=== PATIENT | male | born 1940 | race Caucasian/White ===

== ENCOUNTER 2016-10-02 11:11 | Emergency (ER) | payer MEDICARE ==
[~2016-10-02 11:11] MED LIST: AMLO5TAB2 PO; ASCO500T PO; ASPI-482 PO; CALC500T50 PO; GLUC100018 PO; LOSA1TAB18 PO; OMEG500C PO; SIMV20TA3 PO; [UNRECOGNIZED DRUG - CODE] PO
[2016-10-02] MEDS ORDERED: IV NORMAL SALINE 1000ML BAG 1,000 ML IV SCH (11:20)
[2016-10-02] MEDS ORDERED: FENTANYL PF 100 MCG/2 ML VIAL. ONE (11:22)
[2016-10-02] MEDS ORDERED: IV RINGERS,LACTATED 1000ML 1,000 ML IV ONE ×2 (11:30→13:15)
[2016-10-02 11:34] LABS: BASO # 0.1 x10^3/uL (0.0-0.2); BASO % 1 % (0-3); EOS % 2 % (0-3); HEMATOCRIT 44.7 % (39.0-53.0); HEMOGLOBIN 15.1 g/dL (13.0-17.5); LYMPH # 4.4 x10^3/uL (1.0-4.8); LYMPH % 46 % (24-48); MEAN CORPUSCULAR HEMOGLOBIN 33 pg (25-35); MEAN CORPUSCULAR HGB CONC 34 g/dL (31-37); MEAN CORPUSCULAR VOLUME 97 fL (79-100); MONO % 10 % (0-9); NEUT % 41 % (31-73); PLATELET COUNT 225 x10^3/uL (140-400); RED BLOOD COUNT 4.59 x10^6/uL (4.30-5.70); RED CELL DISTRIBUTION WIDTH 13.2 % (11.5-14.5); WHITE BLOOD COUNT 9.7 x10^3/uL (4.0-11.0)
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
[2016-10-02 11:44] LABS: CALCIUM 9.2 mg/dL (8.5-10.1); CREATININE 1.1 mg/dL (0.7-1.3); GFR 65.1; POTASSIUM 3.4 mmol/L (3.5-5.1)
[2016-10-02] MEDS: FENTANYL PF 100 MCG/2 ML VIAL. IV PRN ×2 (11:51→12:05)
[2016-10-02] MEDS ORDERED: POTASSIUM CHLORIDE 20 MEQ TABLET.ER. PO ONE ×2 (12:00)
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
== END 2016-10-02 12:05 | disposition short-term general hospital (02) ==
LOC: ER 11:11
DX: T22.20XA Burn of second degree of shoulder and upper limb, except wrist and hand, unspecified site, initial encounter (principal); T21.21XA Burn of second degree of chest wall, initial encounter; E78.00 Pure hypercholesterolemia, unspecified; I10 Essential (primary) hypertension; Z88.0 Allergy status to penicillin; Z88.8 Allergy status to other drugs, medicaments and biological substances; X08.8XXA Exposure to other specified smoke, fire and flames, initial encounter; Y93.89 Activity, other specified; Y92.89 Other specified places as the place of occurrence of the external cause; Y99.8 Other external cause status
CPT/HCPCS: 36415; 71010; 80048; 85027; 96361; 96374; 99285; J3010; J7120

== ENCOUNTER → 2018-06-21 | Outpatient (CLI) | payer BC ==
[~2018-06-21] MED LIST changes: -AMLO5TAB2 PO; +AMLO5TAB7 PO; -CALC500T50 PO; +CALC500T54 PO; +FERR325T14 PO; +HYDR12.58 PO; +LOSA100T7 PO; -LOSA1TAB18 PO; +LOSA1TAB25 PO; +PSYL0.528 PO
--- NOTE | 2018-06-21 14:56 | RAD ---
CT CHEST WO CONTRAST Indication: Abnormal chest x-ray Technique: Noncontrast CT imaging was performed of the chest, multiplanar reconstruction images submitted. One or more of the following individualized dose reduction techniques were utilized for this examination: 1. Automated exposure control 2. Adjustment of the mA and/or kV according to patient size 3. Use of iterative reconstruction technique. Comparison: Chest radiograph on June 10, 2018, no previous chest CT available Findings: There is no suspicious pulmonary nodularity, no mass at the right lung base. There are some scattered small calcified pulmonary nodules bilaterally, also some calcified nodes of the mediastinum and bilateral hilar regions. There is coronary calcification. Tubular ascending thoracic aorta is dilated up to about 4.7 cm. Aortic root is estimated about 4.5 cm. There is no pleural or pericardial effusion or pneumothorax. There are small mediastinal nodes, not considered significantly enlarged, largest individual node about 0.6 cm short axis dimension. There is no abnormality of the thyroid gland. There is multilevel thoracic spondylosis. There is mild centrilobular emphysema. IMPRESSION: 1. There is no CT correlate for the radiographic findings. There is emphysema. There are findings of old granulomatous disease. 2. There is aneurysmal dilatation of the tubular ascending thoracic aorta up to 4.7 cm, aortic root dilatation about 4.5 cm. 3. There is coronary calcification. Electronically signed by: Carlos Cagle MD (06/21/2018 2:53 PM) [facility]
== END | disposition home or self-care (01) ==
LOC: CT 13:07
DX: J43.2 Centrilobular emphysema (principal); D71 Functional disorders of polymorphonuclear neutrophils; I25.10 Atherosclerotic heart disease of native coronary artery without angina pectoris; I71.2 Thoracic aortic aneurysm, without rupture; M47.894 Other spondylosis, thoracic region
CPT/HCPCS: 71250

== ENCOUNTER → 2018-06-26 | Outpatient (CLI) | payer BC ==
[~2018-06-26] MED LIST changes: +ASPI325T11 PO; +OXYC-323 PO; +REGADENOSON 0.4 MG/5 ML DISP.SYRIN. IV ONE
--- NOTE | 2018-06-26 10:58 | CARD ---
MR#: [id number] Date of Study: 06/26/2018 Ordering Physician: REYNA JUAREZ, Referring Physician: REYNA JUAREZ Tech: Karen Al RDCS APPROVED REPORT EXAM: Two-dimensional and M-mode echocardiogram with Doppler and color Doppler. Other Information Quality : Good INDICATION Hypertension/HCVD Pre-Op 2D DIMENSIONS RVDd2.7 (2.9-3.5cm)Left Atrium(2D)3.0 (1.6-4.0cm) IVSd1.2 (0.7-1.1cm)Aortic Root(2D)3.5 (2.0-3.7cm) LVDd4.6 (3.9-5.9cm)LVOT Diameter2.1 (1.8-2.4cm) PWd1.0 (0.7-1.1cm)LVDs2.9 (2.5-4.0cm) FS (%) 30.0 %SV64.1 ml LVEF(%)60.0 (>50%) Aortic Valve AoV Peak Jaden.121.4cm/sAoV VTI23.0cm AO Peak GR.5.9mmHgLVOT Peak Jaden.128.0cm/s AO Mean GR.3mmHgAVA (VMAX)3.75cm2 JUANITO (VTI)3.86ll1SQ P 1/2 Vbam686gv Mitral Valve MV E Lxhkksif59.2cm/sMV DECEL IEJE810yh MV A Szxjwnfz92.3cm/sE/A Ratio0.6 Tricuspid Valve TR P. Yllexwot517sg/sRAP IHBHVKOV4urNf TR Peak Gr.92uyGaPEIT56cyOb Pulmonary Vein S1 Cqvbnadr52.1cm/sD2 Ktiphubf02.9cm/s LEFT VENTRICLE The left ventricle is normal size. There is mild asymmetric septal hypertrophy. The left ventricular systolic function is normal. The Ejection Fraction is 55-60%. There is normal LV segmental wall motio n. Transmitral Doppler flow pattern is Grade I-abnormal relaxation pattern. RIGHT VENTRICLE The right ventricle is normal size. The right ventricular systolic function is normal. ATRIA The left atrium size is normal. The right atrium size is normal. The interatrial septum is intact wit h no evidence for an atrial septal defect or patent foramen ovale as noted on 2-D or Doppler imaging. AORTIC VALVE The aortic valve is calcified but opens well. Doppler and Color Flow revealed mild aortic regurgitati on. There is no significant aortic valvular stenosis. MITRAL VALVE The mitral valve is calcified but opens well. Mitral annular calcification is mild. There is no evide nce of mitral valve prolapse. There is no mitral valve stenosis. Doppler and Color-flow revealed mild mitral regurgitation. TRICUSPID VALVE The tricuspid valve is normal in structure and function. Doppler and Color Flow revealed mild tricusp id regurgitation. The PA pressure was estimated at 28 mmHg. There is no tricuspid valve stenosis. PULMONIC VALVE The pulmonary valve is normal in structure and function. Doppler and Color Flow revealed mild pulmoni c valvular regurgitation. There is no pulmonic valvular stenosis. GREAT VESSELS The aortic root is normal in size. The ascending aorta is moderately dilated at 4.4 cm. The IVC is no rmal in size and collapses >50% with inspiration. PERICARDIAL EFFUSION There is no evidence of significant pericardial effusion. Critical Notification Critical Value: No <Conclusion> The left ventricular systolic function is normal. The Ejection Fraction is 55-60%. There is normal LV segmental wall motion. Transmitral Doppler flow pattern is Grade I-abnormal relaxation pattern. Mild aortic regurgitation. Mild mitral regurgitation. Mild tricuspid regurgitation. The PA pressure was estimated at 28 mmHg. The ascending aorta is moderately dilated at 4.4 cm. There is no evidence of significant pericardial effusion. Signed by : Ryena Juarez, Electronically Approved : 06/26/2018 10:58:25
--- NOTE | 2018-06-26 11:29 | RAD ---
MR#: [id number] Date of Study: 06/26/2018 Ordering Physician: REYNA JUAREZ, Referring Physician: ANSON GEE Tech: LANETTE Laguna, ARRJennyfer (R) (N) APPROVED REPORT Test Type: Pharmacological Stress Nurse/Tech: Unruly Ray RN Test Indications: pre-op clearance Cardiac History: HTN, High cholesterol Medications: See Electronic Medical Record Medical History: See Electronic Medical Record Resting ECG: SR BBB Resting Heart Rate: 65 bpm Resting Blood Pressure: 146/82mmHg Pretest Chest Pain: No chest pain Nurse/Tech Notes Lungs CTA, S1S2 Consent: The procedure was explained to the patient in lay terms. Informed consent was witnessed. Niko eout was entered into [employer]. History and Stress Test performed by unruly Ray RN Pharm. Details Pharmacologic stress testing was performed using 0.4mg per 5ml of regadenoson given intravenously ove r 7-10 seconds. Stress Symptoms No chest pain or symptoms. POST EXERCISE Reason for Termination: Infusion complete Max HR: 94 bpm Max Blood Pressure: 135/68mmHg Blood Pressure response to exercise: Normal blood pressure response during stress. Heart Rate response to exercise: normal response Chest Pain: No. Arrhythmia: No. ST Change: No. INTERPRETATION Stress EKG Conclusion: Baseline EKG showed sinus rhythm with RBBB. No ischemic changes at peak stres s. No arrhythmias. Imaging Protocol IMAGE PROTOCOL: Rest Tc-99m/stress Tc-99m 1 day Rest: Stress: Viability: Radiopharm.Tc99m QsturaiplRy27a Sestamibi Bzxm14mXx 31mCi Img Date 06/26/2018 06/26/2018 Inj-Img Hyhc58eaj. 60min. Rest Admin Site:IV - Left AntecubitalAdministrator:LANETTE Laguna, ARRJennyfer (R)(N) Stress Admin Site: IV - Left AntecubitalAdministrator: FAUSTINO Guevara STRESS DATA End Diast. Vol.111.0mlAv. Heart Rate72.0bpm End Syst. Vol.32.0mlCO Index BSA5.7L/min Myocardial Twjq492.0gEject. Utqcezsj67.0% Stress Rates Pk. Fill Rate2.43EDV/secLVtime Pk. Fill 238.11msec Pk. Empty Rate3.52ESV/secLVtime Pk. Spdbn112.44msec 1/3 Pk. Fill0.20EDV/sec Stress Scores Regional WT1.00Summed WT5.00 Regional WM0.00Summed WM1.00 Study quality was good. Left Ventricular size was Normal at Rest and Stress. Lung uptake was . Left Ventricular ejection fraction is 67%. The rest and stress images show normal perfusion, normal contraction and thickening. LV Perf. Quant 17 Seg. SSS0.00 17 Seg. SRS0.00 17 Seg. SDS0.00 Stress Defect Extent (% LAD)0.00Rest Defect Extent (% LAD)0.00Rev. Defect Extent (% LAD)0.00 Stress Defect Extent (% LCX) 15.00Rest Defect Extent (% LCX)0.00Rev. Defect Extent (% LCX)15.00 Stress Defect Extent (% RCA)0.00Rest Defect Extent (% RCA)0.00Rev. Defect Extent (% RCA)0.00 Stress Defect Extent (% ИРИНА)2.60Rest Defect Extent (% ИРИНА)0.00Rev. Defect Extent (% ИРИНА)2.60 Conclusion 1. Regadenoson cardioisotope stress test did not show any evidence of ischemia or infarct. 2. Normal left ventricular systolic function with ejection fraction calculated at 67%. 3. Low risk for cardiac events. Signed by : Reyna Juarez, Electronically Approved : 06/26/2018 11:29:20
== END | disposition home or self-care (01) ==
LOC: NM 07:46
PROVIDERS: ATTEND Internal Medicine Cardiovascular Disease
DX: Z01.810 Encounter for preprocedural cardiovascular examination (principal); I10 Essential (primary) hypertension; E78.00 Pure hypercholesterolemia, unspecified; I08.3 Combined rheumatic disorders of mitral, aortic and tricuspid valves; Z86.73 Personal history of transient ischemic attack (TIA), and cerebral infarction without residual deficits
CPT/HCPCS: 78452; 93017; 93306; 96374; 96375; 96376; A9500; J2785

== ENCOUNTER 2018-07-02 09:04 | Inpatient (IN) | payer BC ==
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
[~2018-07-02] VITALS: Ht 177.8 cm; Wt 81.6 kg
[2018-07-02] VITALS (7 sets, daily range): BP systolic 117–128; BP diastolic 68–77
[~2018-07-02 09:04] MED LIST changes: +ACETAMINOPHEN 500 MG TABLET PO PRN; -ASPI325T11 PO; +CELECOXIB 100 MG CAPSULE. PO PRN; +CLINDAMYCIN 900MG PREMIX 50 ML IV PRN; +HYDROmorphone 2 MG/ML VIAL IV PRN; +LIDOCAINE 1% PF 2 ML VIAL. ID PRN; +MORPHINE SULFATE 2 MG/ML VIAL. IV PRN; +MORPHINE SULFATE 5 MG, KETOROLAC 30MG VIAL 30 MG, ROPIVacaine 0.5% PF 60 ML, EPINEPHrin... INT ART ONE; +ONDANSETRON PF 4 MG/2 ML VIAL. IV PRN; -OXYC-323 PO; +PROCHLORPERAZINE 10 MG/2 ML VIAL. IV PRN; -REGADENOSON 0.4 MG/5 ML DISP.SYRIN. IV ONE; -SIMV20TA3 PO; +TOBRAMYCIN POWDER 1.2 GM VIAL. ONE; +TRANEXAMIC ACID 1,000 MG in IV NS 50ML -- 1ST BAG INJ ONE; +TRANEXAMIC ACID 1,000 MG in IV NS 50ML -- 2ND BAG INJ ONE; +VANCOMYCIN 1 GM VIAL. ONE; +fentaNYL PF VIAL 100 MCG/2 ML VIAL IV PRN
[2018-07-02] MEDS ORDERED: ROCURONIUM 50 MG/5 ML VIAL. ONE (09:42)
[2018-07-02] MEDS ORDERED: fentaNYL PF VIAL 100 MCG/2 ML VIAL ONE ×2 (09:42→12:07)
[2018-07-02] MEDS ORDERED: MIDAZOLAM HCL/PF 2 MG/2 ML VIAL. ONE (09:42)
[2018-07-02] MEDS ORDERED: DEXAMETHASONE SOD PHOS 20 MG/5 ML VIAL. ONE (09:42)
[2018-07-02] MEDS ORDERED: PROPOFOL 20 ML IV ONE (09:42)
[2018-07-02] MEDS ORDERED: FAMOTIDINE 20 MG/2 ML VIAL ONE (09:42)
[2018-07-02] MEDS ORDERED: ONDANSETRON PF 4 MG/2 ML VIAL. ONE (09:42)
[2018-07-02] MEDS ORDERED: LIDOCAINE 2% PF Vial for OR 5 ML VIAL. ONE (09:42)
[2018-07-02] MEDS: IV RINGERS,LACTATED 1000ML 1,000 ML IV SCH ×2 (09:52→13:45)
[2018-07-02] MEDS ORDERED: ePHEDrine PF IN SALINE 50 MG/5 ML DISP.SYRIN IV ONE (11:10)
[2018-07-02] MEDS ORDERED: DESFLURANE > 120 MINUTES IH ONE (13:03)
[2018-07-02] MEDS ORDERED: NEOSTIGMINE METHYLSULFATE 5 MG/5 ML SYRINGE. ONE (13:03)
[2018-07-02] MEDS ORDERED: GLYCOPYRROLATE 1 MG/5 ML VIAL. ONE (13:03)
--- NOTE | 2018-07-02 13:19 | PDOC4 ---
Operative Note Operative Note Date of Procedure: July 02, 2018 Pre-Op Diagnosis: Osteoarthritis left knee Post-Op Diagnosis: Osteoarthritis left knee Procedure: left total knee arthroplasty Surgeon: Jamel Waters MD [employer] Assembler: Mary Ramsay PA-C Anesthesia: General EBL: 100 mL Specimens Obtained: left knee bone and soft tissue Complications: none Implant Company: [employer] Drains: hemovac plus pain catheter Tourniquet time: 51 Minutes Tourniquet Pressure: 350 mm Hg Indications for Procedure: Arthritis pain unrelieved by nonoperative management Findings: Severe osteoarthritis with bone on bone contact in all three compartments, and severe eburnation with mild bone loss of the medial tibia, and large obstructing medial osteophytes. A medial release was required to correct the varus deformity and large medial tibial osteophytes were removed with osteotomes. Implants used: Size 6 left bicruciate stabilized Journey II BCS cobalt chrome femoral component, size 6 left Journey nonporous tibial baseplate, size 5 -6 9 mm left Journey II BCS XLPE constrainedarticular insert, 41 mm oval Natacha II resurfacing patellar component Procedure in Detail: The patient was identified in the preoperative holding area, and the correct left lower extremity was marked by me. The patient was taken to the operating room where the patient was anesthetized by the Department of Anesthesia. Preoperative antibiotics were given intravenously. Tranexamic acid 1 g was given intravenously for intraoperative hemostasis. A "time-out" procedure was performed. The patient was positioned supine on the operative table with a tourniquet on the upper left thigh. The left lower limb was thoroughly scrubbed , then sterile surgical prep solution was applied, and the limb was draped in sterile fashion. An impervious stockinet and adhesive drape were used such that the skin was entirely covered. An Arteaga leg dean was used. The operating team wore personal exhaust-ventilated hoods. The limb exsanguinated with an Esmarch bandage, and the tourniquet was inflated. A midline skin incision was made with a scalpel using the patella and tibial tubercle as landmarks. Electrocautery was used for hemostasis. My operator/assistant foreman used rake retractors. A medial parapatellar arthrotomy incision was used with extension into the distal quadriceps tendon. The patella was retracted laterally and Hohmann retractors were now used by my operator/assistant foreman. Excess synovium, the menisci, and the cruciate ligaments were resected sharply. The patella was assessed and excess synovium and osteophytes around the patellar articulation were removed. The patella was measured with a caliper, cut freehand with a saw using caliper measurements, sized, and then drilled for an oval three-pegged patella component. Periarticular anesthetic injection was used in the suprapatellar pouch and distal quadriceps muscle. Whitesides's line and the transepicondylar axis were marked on the femur. An intra-medullary 5 degree cutting guide was pinned to the femur, and a distal femoral cut was made with an oscillating saw. An additional 2 mm resection was used due to the deep femoral sulcus, and deficient condyle. My operator/assistant foreman held Hohmann retractors and an Army-Salyer retractor to protect the medial and lateral collateral ligaments, the patellar tendon, the skin and the other soft tissues. A posterior referencing guide was applied with external rotation of 3 to match Whitesides line. A 5-in-1 Journey II cutting guide was then applied and pinned to the femur. The posterior, anterior, and all chamfer cuts were made with the oscillating saw. An extramedullary guide was pinned to the tibia and rotational alignment and the planned resection thickness assessed. An external alignment mayank was used to verify the planned cut in the varus-valgus plane and regarding posterior slope referencing the tibial tubercle, the tibial shaft, the ankle joint, and the second metatarsal. The upper tibia was cut made with an oscillating saw. My operator/assistant foreman held Hohmann retractors and a posterior cruciate ligament retractor to protect the medial and lateral collateral ligaments, the patellar tendon, the skin, the peroneal nerve and the other soft tissues. The upper tibia was sized with a trial baseplate. The posterior compartment was cleared of osteophytes and loose bodies. Periarticular anesthetic injection was used in the posterior compartment. The box cut for a posterior stabilized component was made. A preliminary reduction was performed with a trial femur, trial tibial baseplate and trial polyethylene. Soft-tissue balancing was now performed, and extension and rotation of the alignments was checked using a guide mayank in the tibial trial and a guide pin in the femur. A medial release was required, using a 10 blade scalpel, and a Weinstein elevator to elevate the medial structures from the upper medial tibia. The stability was assessed using different thicknesses of tibial articular surface to find satisfactory stability and good range of motion. The rotation of the tibial component was marked on the upper tibia. Final trial reduction was now performed verifying patella tracking and tibiofemoral stability and alignment. The tibia preparation was completed with a drill, saw, and fin punch at the previously noted rotation. The final implants were verified and opened. Outer gloves were changed by the operating team. The bone cuts were washed thoroughly with the [place] InterPulse device and dried. I requested that Ms. Ramsay leave the room while the cement was mixed. Two packages of Yuen + Nephew Rally MV bone cement were mixed in powdered form with Vancomycin 1gm and Tobramycin 1.2 gm, and then vacuum-mixed with the monomer, and placed into a cement gun. The cut surfaces of the bone were thoroughly dried with Marie-tip suction and with laparotomy sponges for cement interdigitation. The final components were cemented into place. The knee was kept at full extension while the cement hardened, and excess cement was removed. Tranexamic acid 1 g was redosed intravenously for additional intraoperative hemostasis. Ms. Ramsay scrubbed, hooded, gowned, gloved, and returned to the case. The tourniquet was released, and electrocautery was used for hemostasis. A final periarticular anesthetic injection was used for pain relief. A final check of [id number] and stability was made, and the polyethylene implant final size was chosen. The polyethylene implant was secured to the tibial baseplate, and the knee was reduced a final time and range of motion and stability was confirmed. Thorough irrigation was used. Hemovac and pain catheter were used.The arthrotomy was closed with interrupted [id number] # 1 PDS suture. The arthrotomy incision was then run with #1 STRATAFIX Symmetric PDS Plus Knotless suture. The subcutaneous tissues were closed with #2-0 Vicryl by my operator/assistant foreman. The skin was approximated with lucila by my operator/assistant foreman. The skin incision was then covered and reinforced with MANI single use negative pressure wound therapy dressing Needle and sponge counts were correct. There were no apparent complications. The patient returned to the recovery room in stable condition. JAMEL WATERS MD Jul 02, 2018 13:19
[2018-07-02] MEDS ORDERED: traMADol 50 MG TABLET PO PRN ×2 (13:45)
[2018-07-02] MEDS ORDERED: ZOLPIDEM 5 MG TABLET. PO PRN (13:45)
[2018-07-02] MEDS ORDERED: diphenhydrAMINE HCL 25 MG CAPSULE PO PRN (13:45)
[2018-07-02] MEDS ORDERED: oxyCODONE/APAP 7.5/325 1 TAB TABLET PO PRN (13:45)
[2018-07-02] MEDS ORDERED: CALCIUM CARBONATE 500 MG TAB.CHEW PO PRN (13:45)
[2018-07-02] MEDS ORDERED: DEXTROSE 50% 25 GM / 50ML DISP.SYRIN. IV PRN (13:45)
[2018-07-02] MEDS ORDERED: 0.9 % SODIUM CHLORIDE 10 ML DISP.SYRIN. IV PRN (13:45)
[2018-07-02] MEDS ORDERED: PROCHLORPERAZINE 5 MG TABLET. PO PRN (13:45)
[2018-07-02] MEDS ORDERED: MORPHINE SULFATE 2 MG/ML VIAL. IV PRN (13:45)
[2018-07-02] MEDS ORDERED: HYDROcodone/APAP 10/325 1 TAB TABLET PO PRN (13:45)
[2018-07-02] MEDS ORDERED: ACETAMINOPHEN 325 MG TABLET. PO PRN (13:45)
[2018-07-02] MEDS ORDERED: PROCHLORPERAZINE 10 MG/2 ML VIAL. IV PRN (13:45)
[2018-07-02] MEDS ORDERED: MORPHINE SULFATE 4 MG/ML VIAL. IV PRN ×2 (13:45)
[2018-07-02] MEDS ORDERED: MORPHINE SULFATE 10 MG/ML VIAL. IV PRN (13:45)
[2018-07-02] MEDS ORDERED: fentaNYL PF VIAL 100 MCG/2 ML VIAL IV PRN ×2 (13:45)
[2018-07-02] MEDS ORDERED: METOCLOPRAMIDE HCL 10 MG/2 ML VIAL. IV PRN (13:45)
--- NOTE | 2018-07-02 14:38 | RAD ---
KNEE LEFT 2V Clinical Indication: POST OP LEFT KNEE REPLACEMENT Comparison: None. Findings: AP and crosstable lateral views. There has been total knee arthroplasty. The alignment appears anatomic. There has been resurfacing of the patella. No periprosthesis fracture is identified. There is mild joint fluid. Surgical drain is in place. There is scattered subcutaneous air. There are anterior skin lucila. IMPRESSION: Post total knee arthroplasty, no acute complication radiographically. Electronically signed by: Nilesh Servin MD (07/02/2018 2:35 PM) [id number]
[2018-07-02] MEDS: CLINDAMYCIN 900MG PREMIX 50 ML IV SCH ×2 (16:54→22:41)
[2018-07-02] MEDS: FERROUS SULFATE 325 MG TABLET. PO SCH (17:02)
[2018-07-02] MEDS: oxyCODONE/APAP 5/325 1 TAB TABLET PO PRN (17:02)
[2018-07-02] MEDS: IV DEXTROSE 5 %-0.45 % NACL 1,000 ML IV SCH (17:07)
[2018-07-02] MEDS: KETOROLAC 30MG VIAL 30 MG, BUPIVACAINE MPF 0.25% 20 ML, EPINEPHrine 0.5 MG in TOTAL VOL... INT ART SCH (17:08)
[2018-07-02] MEDS: ASPIRIN ENTERIC COATED 325 MG TABLET.DR. PO SCH (21:14)
[2018-07-02] MEDS: CELECOXIB 100 MG CAPSULE. PO SCH (21:14)
[2018-07-02] MEDS: SIMVASTATIN 20 MG TABLET PO SCH (21:14)
[2018-07-03] MEDS: IV DEXTROSE 5 %-0.45 % NACL 1,000 ML IV SCH ×3 (02:00→22:00)
[2018-07-03 03:13] VITALS: BP 116/69
[2018-07-03] MEDS: CLINDAMYCIN 900MG PREMIX 50 ML IV SCH (04:37)
[2018-07-03] MEDS: KETOROLAC 30MG VIAL 30 MG, BUPIVACAINE MPF 0.25% 20 ML, EPINEPHrine 0.5 MG in TOTAL VOL... INT ART SCH ×3 (05:22→07:00)
[2018-07-03 05:35] LABS: HEMATOCRIT 32.6 % (39.0-53.0); HEMOGLOBIN 11.5 g/dL (13.0-17.5)
[2018-07-03] MEDS: HYDROcodone/APAP 7.5/325MG 1 TAB TABLET PO PRN ×2 (05:36→12:54)
[2018-07-03 05:48] VITALS: BP 111/69
[2018-07-03] MEDS ORDERED: MAGNESIUM HYDROXIDE 2,400 MG/30 ML ORAL.SUSP. PO PRN (06:00)
[2018-07-03] MEDS: FERROUS SULFATE 325 MG TABLET. PO SCH ×2 (08:23→16:50)
[2018-07-03] MEDS: ASCORBIC ACID 500 MG TABLET PO SCH (08:23)
[2018-07-03] MEDS: ASPIRIN ENTERIC COATED 325 MG TABLET.DR. PO SCH ×2 (08:23→21:01)
[2018-07-03] MEDS: SENNOSIDES/DOCUSATE 8.6/50MG TABLET. PO SCH (08:23)
[2018-07-03] MEDS: MULTIVITAMIN with MINERAL TABLET. PO SCH (08:23)
[2018-07-03] MEDS: CELECOXIB 100 MG CAPSULE. PO SCH ×2 (08:23→21:01)
[2018-07-03] MEDS: hydroCHLOROthiazide 12.5 MG CAPSULE PO SCH (08:23)
[2018-07-03 08:28] VITALS: BP 91/59
[2018-07-03] MEDS: LOSARTAN POTASSIUM 50 MG TABLET. PO SCH (09:00)
--- NOTE | 2018-07-03 09:35 | PDOC ---
PROGRESS NOTES Subjective Subjective Doing well. Having pain, but controlled with pain medication. Objective Vital Signs Vital Signs Date Time Temp Pulse Resp B/P (MAP) Pulse Ox O2 Delivery O2 Flow Rate FiO2 07/03/18 08:34 Room Air 07/03/18 08:28 78 18 91/59 (70) 07/03/18 05:48 97.5 93 97.5 07/02/18 15:30 2.0 Physical Exam Postop dressing dry and intact. Hemovac and pain catheter in place. Thigh and calf soft and nontender with negative Homans sign. Good AROM toes, foot, and ankle, with no sign of neurovascular injury nor compartment syndrome. Labs Laboratory Tests Test 07/03/18 05:00 Hemoglobin 11.5 g/dL (13.0-17.5) Hematocrit 32.6 % (39.0-53.0) Mean Corpuscular Hemoglobin Concent 35 g/dL (31-37) Laboratory Tests Test 07/03/18 05:00 Hemoglobin 11.5 g/dL (13.0-17.5) Hematocrit 32.6 % (39.0-53.0) Mean Corpuscular Hemoglobin Concent 35 g/dL (31-37) Imaging Postoperative knee x-rays report reviewed, images independently reviewed. Satisfactory TKA alignment with no apparent complications. Assessment Assessment POD #1 TKA Plan Plan of Care Continue POC including PT and DVT prophylaxis. LORENZA WILLIAM Jul 03, 2018 09:35
[2018-07-03 11:45] VITALS: BP 92/53
[2018-07-03] MEDS ORDERED: BISACODYL 10 MG SUPP.RECT. PR PRN (16:00)
[2018-07-03 18:14] VITALS: BP 93/55
[2018-07-03] MEDS: oxyCODONE/APAP 5/325 1 TAB TABLET PO PRN (19:41)
[2018-07-03 19:45] VITALS: BP 105/76
[2018-07-03] MEDS: SIMVASTATIN 20 MG TABLET PO SCH (21:01)
[2018-07-04] MEDS: oxyCODONE/APAP 5/325 1 TAB TABLET PO PRN ×4 (03:52→21:31)
[2018-07-04 07:05] VITALS: BP 104/60
[2018-07-04 07:11] LABS: HEMATOCRIT 30.1 % (39.0-53.0); HEMOGLOBIN 10.7 g/dL (13.0-17.5)
[2018-07-04] MEDS: CELECOXIB 100 MG CAPSULE. PO SCH ×2 (09:00→21:29)
[2018-07-04] MEDS: LOSARTAN POTASSIUM 50 MG TABLET. PO SCH (09:00)
[2018-07-04] MEDS: FERROUS SULFATE 325 MG TABLET. PO SCH ×2 (09:25→14:54)
[2018-07-04] MEDS: hydroCHLOROthiazide 12.5 MG CAPSULE PO SCH (09:25)
[2018-07-04] MEDS: SENNOSIDES/DOCUSATE 8.6/50MG TABLET. PO SCH (09:25)
[2018-07-04] MEDS: ASPIRIN ENTERIC COATED 325 MG TABLET.DR. PO SCH ×2 (09:25→21:29)
[2018-07-04] MEDS: MULTIVITAMIN with MINERAL TABLET. PO SCH (09:25)
[2018-07-04] MEDS: ASCORBIC ACID 500 MG TABLET PO SCH (09:25)
[2018-07-04 11:29] VITALS: BP_SYST 115; BP_SYST 117; BP_DIAS 54; BP_DIAS 72
--- NOTE | 2018-07-04 12:52 | PDOC ---
PROGRESS NOTES Subjective Subjective Pain controlled. Occasional episodes of confusion per nursing, but is alert and oriented currently. Drinking fluids and urinating with encouragement. Needed to be straight catheterized earlier. Objective Vital Signs Vital Signs Date Time Temp Pulse Resp B/P (MAP) Pulse Ox O2 Delivery O2 Flow Rate FiO2 07/04/18 12:20 20 07/04/18 11:29 97.3 81 115/72 (86) 96 Room Air 97.3 07/04/18 03:52 2.0 Physical Exam Knee MANI dressing with spotty drainage only, and slight bleeding from hemovac site. Calf and thigh soft and NT. Good AROM toes, foot and ankle with negative Homans and no sign of neurovascular injury nor compartment syndrome. Pain catheter and hemovac have been removed. Not yet safely walking with walker. Labs Laboratory Tests Test 07/03/18 05:00 07/04/18 06:10 Hemoglobin 11.5 g/dL (13.0-17.5) 10.7 g/dL (13.0-17.5) Hematocrit 32.6 % (39.0-53.0) 30.1 % (39.0-53.0) Mean Corpuscular Hemoglobin Concent 35 g/dL (31-37) 36 g/dL (31-37) Laboratory Tests Test 07/04/18 06:10 Hemoglobin 10.7 g/dL (13.0-17.5) Hematocrit 30.1 % (39.0-53.0) Mean Corpuscular Hemoglobin Concent 36 g/dL (31-37) Imaging Postoperative knee x-rays. Report reviewed, images independently reviewed. Satisfactory TKA alignment with no apparent complications. Assessment Assessment POD 2 after TKA Plan Plan of Care Continue PT and DVT prophylaxis. Discharge planning for tomorrow. JAMEL RUIZ MD Jul 04, 2018 12:52
--- NOTE | 2018-07-04 16:08 | PATHOLOGY ---
[facility] Accession Number: [id number] . 01 Material submitted: . LEFT KNEE BONE AND TISSUE . 01 Clinician provided ICD-10: M17.12 . 01 Clinical history: . Left knee osteoarthritis . 02 Diagnosis: Bone, left knee, removal: - Degenerative osteoarthritis. . (SKM:esperanza; 07/04/2018) MBR/07/04/2018 . 02 Electronically signed: . Domingo Duran MD, Pathologist NPI- [id number] . 01 Gross description: . The specimen is received in formalin, labeled "Memo Velasco Jr., left knee bone and tissue". Received are multiple segments of light sanders bone, including the tibial plateau, measuring 9.8 x 8.2 x 2.5 cm in aggregate dimensions admixed with soft tissue. Meniscus is present. The articular surfaces are light sanders and smooth to granular appearance with evidence of eburnation. The specimen is submitted representatively in cassette A1, following decalcification. (CAA; 07/03/2018) QAC/QAC . 02 Pathologist provided ICD-10: M17.12 . 02 CPT . 432645, [id number] Specimen Comment: A courtesy copy of this report has been sent to Specimen Comment: [phone], , . Specimen Comment: Report sent to , DR MCMAHAN / DR NORWOOD Specimen Comment: A duplicate report has been generated due to demographic updates. Performed at: 01 [facility] [address], [place], [place] [id number] MD Karson Ely MD Phone: [phone] Performed at: 02 [facility] [address] [place], [place] [id number] MD Memo Mckay MD Phone: [phone]
[2018-07-04] MEDS: SIMVASTATIN 20 MG TABLET PO SCH (21:29)
[2018-07-05 05:00] VITALS: BP 115/72
[2018-07-05 06:23] VITALS: BP 124/74
[2018-07-05] MEDS ORDERED: SIMV20TA3 PO (07:46)
[2018-07-05] MEDS: oxyCODONE/APAP 5/325 1 TAB TABLET PO PRN ×3 (08:14→14:52)
[2018-07-05] MEDS: hydroCHLOROthiazide 12.5 MG CAPSULE PO SCH (08:14)
[2018-07-05] MEDS: SENNOSIDES/DOCUSATE 8.6/50MG TABLET. PO SCH (08:14)
[2018-07-05] MEDS: ASCORBIC ACID 500 MG TABLET PO SCH (08:14)
[2018-07-05] MEDS: ASPIRIN ENTERIC COATED 325 MG TABLET.DR. PO SCH (08:14)
[2018-07-05] MEDS: CELECOXIB 100 MG CAPSULE. PO SCH (08:15)
[2018-07-05] MEDS: MULTIVITAMIN with MINERAL TABLET. PO SCH (08:15)
[2018-07-05] MEDS: FERROUS SULFATE 325 MG TABLET. PO SCH (08:15)
[2018-07-05] MEDS: LOSARTAN POTASSIUM 50 MG TABLET. PO SCH (09:00)
[2018-07-05 11:55] LABS: HEMOGLOBIN 12.3 g/dL (13.0-17.5)
--- NOTE | 2018-07-05 12:41 | DISCH ---
DISCHARGE DISCHARGE INFORMATION: DISCHARGE DATE: Jul 05, 2018 FINAL DIAGNOSIS osteoarthritis left knee, now S/P TKA CONDITION ON DISCHARGE: Stable CODE STATUS: Code Status: Full CARE HOME: SNF STAY <30 DAYS: Yes HOSPICE: HOSPICE: No HOSPICE EVAL & TREAT: No POST DISCHARGE ORDERS: ACTIVITY ORDERS: Activity as tolerated, Walk in house WEIGHT BEARING STATUS: No restrictions, Full weight bearing, As tolerated BATHING ORDERS: Shower-keep dressing dry, No Tub Bath until see WOUND/INCISION CARE: Ice to area for comfort, Keep wound/cast CDI, Keep wound elevated, Do not change dressing OTHER WOUND INSTRUCTIONS: remove battery pack sundayJul 09 ; cut tubing 4" from bubble tape downwa CHECKS AFTER DISCHARGE: COMMENTS: "Jef" will be on 325mg asa 2x's day for at least FOLLOW-UP: ADDITIONAL FOLLOW-UP: call [phone] for a 2 week post op appt with Dr. Waters /Mary TREATMENT/EQUIPMENT ORDERS: ADAPTIVE EQUIPMENT NEEDED: Walker Physical Therapy For: Evalulation/Treatment Occupational Therapy For: Evaluation/Treatment DISCHARGE MEDICATIONS: Home Meds Reported Medications Ferrous Sulfate (FERROUS SULFATE) 325 Mg Tablet, 325 MG PO DAILY, TAB 06/10/18 Hydrochlorothiazide (HYDROCHLOROTHIAZIDE TABLET) 12.5 Mg Tablet, 12.5 MG PO DAILY for DIURETIC, TAB 0 Refills 06/10/18 Losartan Potassium (LOSARTAN POTASSIUM) 100 Mg Tablet, 100 MG PO DAILY, TAB 06/10/18 Psyllium Husk (FIBER THERAPY) 0.52 Gm Capsule, 1 CAP PO DAILY, CAP 06/10/18 Calcium Carbonate (CALCIUM) 500 Mg Tab.chew, 0 PO, TAB.CHEW 12/03/13 Glucosamine Sulfate 2KCL (GLUCOSAMINE) 1,000 Mg Tablet, 1000 MG PO DAILY 12/03/13 Aspirin (ASPIR 81) 81 Mg Tablet.dr, 81 MG PO DAILY, TAB 12/03/13 [place]-3 Fatty Acids (FISH OIL) 500 Mg Capsule.dr, 0 PO DAILY 12/03/13 Ascorbic Acid (VITAMIN C) 500 Mg Tab.chew, 500 MG PO DAILY, TAB.CHEW 12/03/13 Multivitamin (ESSENTIAL ONE DAILY) 1 Each Tablet, 1 EACH PO DAILY 12/03/13 Simvastatin (SIMVASTATIN) 20 Mg Tablet, 20 MG PO DAILY 12/03/13 JAMEL WATERS MD Jul 05, 2018 12:41
--- NOTE | 2018-07-05 12:42 | PDOC3 ---
Discharge Summary Visit Information Date of Admission: Jul 02, 2018 Date of Discharge: Jul 05, 2018 Admitting Diagnosis: left knee osteoarthritis pain Brief Hospital Course Allergies Allergies Coded Allergies Type Severity Reaction Last Updated Verified Penicillins Allergy Intermediate Rash 07/02/18 Yes pseudoephedrine Adverse Reaction Intermediate tachycardia 07/02/18 Yes Vital Signs Vital Signs Date Time Temp Pulse Resp B/P (MAP) Pulse Ox O2 Delivery O2 Flow Rate FiO2 07/05/18 07:25 Room Air 07/05/18 06:23 99.0 91 18 124/74 (91) 93 99.0 07/05/18 05:00 2.0 Lab Results Laboratory Tests Test 07/04/18 06:10 07/05/18 11:35 Hemoglobin 10.7 g/dL (13.0-17.5) 12.3 g/dL (13.0-17.5) Hematocrit 30.1 % (39.0-53.0) 35.0 % (39.0-53.0) Mean Corpuscular Hemoglobin Concent 36 g/dL (31-37) 35 g/dL (31-37) Laboratory Tests Test 07/05/18 11:35 Hemoglobin 12.3 g/dL (13.0-17.5) Hematocrit 35.0 % (39.0-53.0) Mean Corpuscular Hemoglobin Concent 35 g/dL (31-37) Brief Hospital Course 77 year old who presented with knee osteoarthritis, for elective total knee arthroplasty. The patient underwent total knee arthroplasty under general anesthesia the day of admission. Perioperative antibiotics and DVT prophylaxis were used. Postoperatively physical therapy and case management were consulted. The patient progressed and is stable for discharge. Discharge Information Condition at Discharge: Stable Follow Up: Weeks (2) Disposition/Orders: D/C to Another Facility ([facility]) Scheduled Ascorbic Acid (Vitamin C), 500 MG PO DAILY, (Reported) Aspirin (Aspir 81), 81 MG PO DAILY, (Reported) Ferrous Sulfate (Ferrous Sulfate), 325 MG PO DAILY, (Reported) Glucosamine Sulfate 2KCL (Glucosamine), 1,000 MG PO DAILY, (Reported) Hydrochlorothiazide (Hydrochlorothiazide Tablet), 12.5 MG PO DAILY, (Reported) Losartan Potassium (Losartan Potassium), 100 MG PO DAILY, (Reported) Multivitamin (Essential One Daily), 1 EACH PO DAILY, (Reported) [place]-3 Fatty Acids (Fish Oil), 0 PO DAILY, (Reported) Psyllium Husk (Fiber Therapy), 1 CAP PO DAILY, (Reported) Simvastatin (Simvastatin), 20 MG PO DAILY, (Reported) Miscellaneous Medications Calcium Carbonate (Calcium), 0 PO, (Reported) Patient Instructions Patient Instructions Patient Instructions Continue to WBAT with walker. Keep dressing dry and intact. F/U with [facility] in 10-14 days. Call for appointment. Physical therapy for TKA Continue DVT prophylaxis with aspirin 325mg twice daily. LORENZA WILLIAM Jul 05, 2018 12:42
--- NOTE | 2018-07-05 12:45 | PDOC ---
PROGRESS NOTES Subjective Subjective Doing well, no complaints. Planning for discharge today after PM therapy Objective Vital Signs Vital Signs Date Time Temp Pulse Resp B/P (MAP) Pulse Ox O2 Delivery O2 Flow Rate FiO2 07/05/18 07:25 Room Air 07/05/18 06:23 99.0 91 18 124/74 (91) 93 99.0 07/05/18 05:00 2.0 Physical Exam MANI intact and dry. Calves soft and NT. Minimal swelling. Labs Laboratory Tests Test 07/04/18 06:10 07/05/18 11:35 Hemoglobin 10.7 g/dL (13.0-17.5) 12.3 g/dL (13.0-17.5) Hematocrit 30.1 % (39.0-53.0) 35.0 % (39.0-53.0) Mean Corpuscular Hemoglobin Concent 36 g/dL (31-37) 35 g/dL (31-37) Laboratory Tests Test 07/05/18 11:35 Hemoglobin 12.3 g/dL (13.0-17.5) Hematocrit 35.0 % (39.0-53.0) Mean Corpuscular Hemoglobin Concent 35 g/dL (31-37) Assessment Assessment POD #3 TKA Plan Plan of Care Discharge to SNU today. Continue aspirin BID for DVT prophylaxis. Continue PT and OT. JAMEL RUIZ MD Jul 05, 2018 12:45
[2018-07-05 12:55] VITALS: BP 113/73
[2018-07-05] MEDS ORDERED: ASPI325T11 PO (13:20)
[2018-07-05] MEDS ORDERED: OXYC-323 PO (13:21)
== END 2018-07-05 16:03 | DRG 470 ==
LOC: OPSVCIP 09:04 → 4 SOUTHEST 14:35
PROVIDERS: ADMIT Orthopaedic Surgery; ATTEND Orthopaedic Surgery
PROC: 0SRD069 Replacement of Left Knee Joint with Oxidized Zirconium on Polyethylene Synthetic Substitute, Cemented, Open Approach (ICD-10-PCS; principal; 2018-07-02 11:15)
DX: M17.12 Unilateral primary osteoarthritis, left knee (principal); I10 Essential (primary) hypertension; M21.162 Varus deformity, not elsewhere classified, left knee; Z86.718 Personal history of other venous thrombosis and embolism; Z86.61 Personal history of infections of the central nervous system; Z88.0 Allergy status to penicillin; Z88.8 Allergy status to other drugs, medicaments and biological substances
CPT/HCPCS: 36415; 73560; 85014; 85018; 86850; 86900; 86901; 88305; 88311; A7015; C1713; J0171; J1100; J1885; J2001; J2250; J2270; J2405; J2704; J2710; J2795; J3010; J3260; J3370; J3490; J7030; J7120; 97116; 97150; 97530; 97535; A4461; C1769

== ENCOUNTER → 2018-08-12 | Outpatient (CLI) | payer BC ==
[~2018-08-12] MED LIST changes: -ACETAMINOPHEN 500 MG TABLET PO PRN; +ASPI325T11 PO; -CELECOXIB 100 MG CAPSULE. PO PRN; -CLINDAMYCIN 900MG PREMIX 50 ML IV PRN; -HYDROmorphone 2 MG/ML VIAL IV PRN; -LIDOCAINE 1% PF 2 ML VIAL. ID PRN; +LOSA100T14 PO; -LOSA100T7 PO; -MORPHINE SULFATE 2 MG/ML VIAL. IV PRN; -MORPHINE SULFATE 5 MG, KETOROLAC 30MG VIAL 30 MG, ROPIVacaine 0.5% PF 60 ML, EPINEPHrin... INT ART ONE; -ONDANSETRON PF 4 MG/2 ML VIAL. IV PRN; +OXYC1TAB15 PO; -PROCHLORPERAZINE 10 MG/2 ML VIAL. IV PRN; +SIMV20TA3 PO; -TOBRAMYCIN POWDER 1.2 GM VIAL. ONE; -TRANEXAMIC ACID 1,000 MG in IV NS 50ML -- 1ST BAG INJ ONE; -TRANEXAMIC ACID 1,000 MG in IV NS 50ML -- 2ND BAG INJ ONE; -VANCOMYCIN 1 GM VIAL. ONE; -fentaNYL PF VIAL 100 MCG/2 ML VIAL IV PRN
[2018-08-12 16:13] LABS: BASO # 0.1 x10^3/uL (0.0-0.2); BASO % 1 % (0-3); EOS # 0.1 x10^3/uL (0.0-0.7); EOS % 1 % (0-3); HEMATOCRIT 36.4 % (39.0-53.0); HEMOGLOBIN 12.4 g/dL (13.0-17.5); LYMPH # 1.6 x10^3/uL (1.0-4.8); LYMPH % 14 % (24-48); MEAN CORPUSCULAR HEMOGLOBIN 32 pg (25-35); MEAN CORPUSCULAR HGB CONC 34 g/dL (31-37); MEAN CORPUSCULAR VOLUME 95 fL (79-100); MONO # 0.8 x10^3/uL (0.0-1.1); MONO % 7 % (0-9); NEUT # 8.9 x10^3uL (1.8-7.7); NEUT % 78 % (31-73); PLATELET COUNT 295 x10^3/uL (140-400); RED BLOOD COUNT 3.84 x10^6/uL (4.30-5.70); WHITE BLOOD COUNT 11.4 x10^3/uL (4.0-11.0)
[2018-08-12 16:41] LABS: ALBUMIN 3.9 g/dL (3.4-5.0); ALBUMIN/GLOBULIN RATIO 0.9 (1.0-1.7); CALCIUM 10.1 mg/dL (8.5-10.1); GFR 20.3; POTASSIUM 4.1 mmol/L (3.5-5.1); TOTAL BILIRUBIN 0.5 mg/dL (0.2-1.0); TOTAL PROTEIN 8.4 g/dL (6.4-8.2)
== END | disposition home or self-care (01) ==
LOC: LAB 15:49
PROVIDERS: ATTEND Psychiatry & Neurology Neurology
DX: R47.81 Slurred speech (principal)
CPT/HCPCS: 36415; 80053; 82550; 82607; 84443; 85025

== ENCOUNTER → 2018-08-16 | Outpatient (CLI) | payer BC ==
--- NOTE | 2018-08-20 21:33 | EEG ---
DATE OF SERVICE: 08/16/2018 EEG NUMBER: [id number]. OBJECTIVE: This is a 77-year-old male patient with history of speech difficulties and cognitive impairments. EEG was requested to evaluate cerebral activity and help rule out seizure. METHODS: Twenty electrodes were applied according to the international 10-20 electrode placement system. EKG monitoring, hyperventilation, intermittent photic stimulation, monopolar and bipolar montages are routinely utilized. The record was obtained on a digital system with video monitoring. FINDINGS: 1. Background: The patient was recorded in the awake, drowsy and sleep states. The overall background amplitude is 10-20 microvolts. A posterior dominant rhythm of 8 Hz is observed. 2. Abnormalities: No specific epileptiform discharge or electrographic seizure is seen. No diffuse slowing. 3. Activation: Hyperventilation was performed with fair efforts and normal response. Intermittent photic stimulation was performed with photic driving. No specific epileptiform discharge or electrographic seizure induced by hyperventilation or intermittent photic stimulation. IMPRESSION: This EEG is within the broad normal limits of the study for the awake, drowsy and sleep states. No focal, lateralizing, specific epileptiform discharge or electrographic seizure is seen. DON DUDLEY MD DR: ARMINDA/joya JOB#: [id number] / [id number] JOHN
== END | disposition home or self-care (01) ==
LOC: RT 10:47 → MERGE 11:00
PROVIDERS: ATTEND Psychiatry & Neurology Neurology
DX: R47.81 Slurred speech (principal); R41.89 Other symptoms and signs involving cognitive functions and awareness
CPT/HCPCS: 95816

== ENCOUNTER → 2018-08-20 | Outpatient (CLI) | payer BC ==
--- NOTE | 2018-08-20 11:21 | RAD ---
MRI Brain without contrast History: Slurred speech Technique: Multiplanar, multisequential noncontrast MR imaging was performed of the brain. Comparison: None Findings: There is no evidence of recent infarct or cytotoxic edema. Ventricular size is proportionate to sulcal spaces. There is mild to moderate generalized supratentorial atrophy.There is no significant midline shift, intraaxial mass effect, or focal abnormal extra-axial fluid collection. There is minimal T2 and FLAIR hyperintense abnormality of the supratentorial parenchyma white matter, also minimal scattered T2 and FLAIR hyperintense signal of the bilateral frontal deep white matter. There is no significant hemosiderin deposition of the brain parenchyma. There is preservation of the major intracranial flow-voids at the skull base. The mastoid air cells are aerated. The cerebellar tonsils are normal in location. There is no significant abnormality of the pineal gland or pituitary gland. There has been lens surgery bilaterally. 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 There is mild deviation nasal septum to the left. There is very mild bilateral ethmoid air cell mucosal thickening. There is what likely represents a complex mucous retention cyst of the anterior right maxillary sinus about 1.5 cm. There is preserved marrow signal of the clivus. Impression: 1. There is no evidence of recent infarct or intracranial mass effect. There is mild to moderate generalized supratentorial atrophy. Minimal T2 and FLAIR hyperintense abnormality of the bilateral frontal white matter is probably due to chronic microvascular ischemic disease in a patient this age. Electronically signed by: Carlos Cagle MD (08/20/2018 11:17 AM) [id number]
== END | disposition home or self-care (01) ==
LOC: MERGE 10:30 → MRI 11:45
PROVIDERS: ATTEND Psychiatry & Neurology Neurology
DX: G31.89 Other specified degenerative diseases of nervous system (principal); I67.82 Cerebral ischemia; R47.81 Slurred speech; J34.2 Deviated nasal septum
CPT/HCPCS: 70551